=== PATIENT | female | born 1975 | race Hispanic/Latino ===

== ENCOUNTER → 2018-06-14 | Outpatient (CLI) | payer BC ==
--- NOTE | 2018-06-14 11:51 | Diagnostic Imaging Report ---
EXAM: Transabdominal and Transvaginal Pelvic Ultrasound INDICATION: \S\ANEMIA COMPARISON: None TECHNIQUE: Grayscale transverse and sagittal transabdominal and transvaginal images were obtained of the pelvis. Transvaginal imaging was medically necessary to better evaluate the endometrium and the adnexa. CLINICAL HISTORY: 42 year old A0; last menstrual period: 06/02/2018. FINDINGS: Uterus Orientation: Normal Size: 9.1 x 4.4 x 5.9 cm, Normal Mass: None Cervix: Normal Endometrium: Thickness: 0.2 cm, Normal. Appearance: Homogeneous echotexture without focal thickening. Right ovary: Size: 3.5 x 1.9 x 2.1 cm Mass/Cyst: None Left ovary: Size: 3.7 x 2.1 x 2.8 cm Mass/Cyst: None Adnexa: Normal Cul-de-sac: Small to moderate amount of free fluid IMPRESSION: Small to moderate amount of free fluid in the pelvis of indeterminate significance. Differential diagnosis includes ruptured ovarian hemorrhagic cyst, though no ovarian cysts are visualized. If pain persists, consider further evaluation with CT abdomen and pelvis with contrast. Signed by: Dr. Migdalia Harrison M.D. on 06/14/2018 11:47 AM
== END ==
LOC: US 10:29
PROVIDERS: ATTEND Family Medicine
DX: D64.9 Anemia, unspecified (principal)
CPT/HCPCS: 76856

== ENCOUNTER → 2019-09-03 | Day surgery (SDC) | payer BC ==
[~2019-09-03] MED LIST: FAMOTIDINE20 MG PO; FENTANYL CITRATE/PF 100MCG/2 ML INJ ONE; HYDROCHLOROTHIA25 MG PO; IRON PO; LOSARTAN POTAS100 MG PO; METOPROLOL SUCC50 MG PO; MIDAZOLAM HCL 2 MG/2 ML VIAL ONE; PROPOFOL IV EMULSION 10 MG/ML 50 ML VIAL ONE
--- OUTSIDE RECORDS SUMMARY | 2019-09-03 11:28 | XMS REPORT ---
[facility] Address Unknown Phone Unavailable Care Team Providers Care Emergency Medical Tech Name Role Phone YOCASTA TORRES Unavailable Unavailable Payers Payer Name Policy Type Policy Number Effective Date Expiration Date Problems This patient has no known problems. Allergies, Adverse Reactions, Alerts Allergy Name Allergy Type Status Severity Reaction(s) Onset Date Inactive Date Treating Clinician Comments No Known Allergies DA Active U 2019-08-05 00:00:00 No Known Allergies DA Active U 2014-01-29 00:00:00 Medications This patient has no known medications. Results Test Description Test Time Test Comments Text Results Atomic Results Result Comments TROPONIN-I 2019-08-05 20:34:00 TROPONIN-I (test code=TROPI) <0.015 ng/mL 0-0.045 COMMENTS TO SOD FARMER: COLLECT 3 HOURS AFTER PREVIOUS [id number] 17:18:00* Test Item Value Reference Range Comments TROPONIN-I (test code=TROPI) <0.015 ng/mL 0-0.045 COMMENTS TO SOD FARMER: COLLECT 3 HOURS AFTER PREVIOUS SAMPLETROPONIN I [id number] 10:31:00* Test Item Value Reference Range Comments TROPONIN I RAPID (test code=TROPIRAP) 0.00 ng/mL <0.08 Please Note New Reference Range 0.00-0.079 ng/mL - Negative>or=0.08 ng/mL - Positive The use of serial sampling and testing protocol is arecommended practice.An elevated troponin level alone is often not sufficient fordiagnosis of myocardial infarction. Troponin results obtained by different assays may vary.Evaluation of the extent of myocardial damage based onincrease of troponin would be valid only if similarmethodology is used. CHEMISTRY 8 [id number] 10:17:00* Test Item Value Reference Range Comments ISTAT-SODIUM (test code=NAP) mmol/L 135-148 ISTAT-POTASSIUM (test code=KP) mmol/L 3.5-5.5 ISTAT-CHLORIDE (test code=CLP) mmol/L 101-109 ISTAT CARBON DIOXIDE (test code=ISTAT-CO2) mmol/L 21-32 ISTAT CALCIUM IONIZED (test code=ISTAT-PINKY) mg/dL 1.12-1.32 ISTAT-ANION GAP (test code=GAPP) MEQ/L 10-20 ISTAT-GLUCOSE (test code=GLUP) mg/dL 74-106 ISTAT-BUN (test code=BUNP) mg/dL 3-21 BEDSIDE CREATININE (test code=CREATBED) mg/dL 0.7-1.3 GLOMERULAR FILTRATION RATE POC (test code=GFRBED) 133 >60 CHEMISTRY 8 [id number] 10:17:00* Test Item Value Reference Range Comments ISTAT-SODIUM (test code=NAP) 139 mmol/L 135-148 ISTAT-POTASSIUM (test code=KP) 3.5 mmol/L 3.5-5.5 ISTAT-CHLORIDE (test code=CLP) 103 mmol/L 101-109 ISTAT CARBON DIOXIDE (test code=ISTAT-CO2) 34.0 mmol/L 21-32 ISTAT CALCIUM IONIZED (test code=ISTAT-PINKY) 1.16 mg/dL 1.12-1.32 ISTAT-ANION GAP (test code=GAPP) 6.0 MEQ/L 10-20 ISTAT-GLUCOSE (test code=GLUP) 131 mg/dL 74-106 ISTAT-BUN (test code=BUNP) 9 mg/dL 3-21 BEDSIDE CREATININE (test code=CREATBED) 0.5 mg/dL 0.7-1.3 GLOMERULAR FILTRATION RATE POC (test code=GFRBED) 133 >60 BASIC METABOLIC [id number] 10:03:00* Test Item Value Reference Range Comments SODIUM (test code=NA) 140 mmol/L 136-145 POTASSIUM (test code=K) 3.5 mmol/L 3.5-5.1 CHLORIDE (test code=CL) 106.0 mmol/L 98-107 CARBON DIOXIDE (test code=CO2) 27.0 mmol/L 21-32 ANION GAP (test code=GAP) 10.5 10-20 GLUCOSE (test code=GLU) 127 mg/dL 74-106 BLOOD UREA NITROGEN (test code=BUN) 10 mg/dL 7-18 GLOMERULAR FILTRATION RATE (test code=GFR) > 60 mL/min >=60 Estimated GFR by using Modified MDRD formula.Chronic kidney disease is defined as either kidney damageor GFR <60 mL/min/1.73 m2 for >3 months. CREATININE (test code=CREAT) 0.60 mg/dL 0.55-1.02 Note change in reference range due to change in reagent. BUN/CREATININE RATIO (test code=BUN/CREA) 16.7 10-20 CALCIUM (test code=CA) 8.9 mg/dL 8.5-10.1 HCG SERUM [id number] 10:03:00* Test Item Value Reference Range Comments HCG SERUM QUAL (test code=HCGQL) NEGATIVE NEGATIVE This HCGQL test is NOT applicable for MALE patients.Check with nurse about probable order error.If Tumor Marker Test needed, nurse should order test "HCGTU"(Test #550.25508) [id number] 10:03:00* Test Item Value Reference Range Comments TROPONIN-I (test code=TROPI) <0.015 ng/mL 0-0.045 BASIC METABOLIC [id number] 10:00:00* Test Item Value Reference Range Comments SODIUM (test code=NA) 140 mmol/L 136-145 POTASSIUM (test code=K) 3.5 mmol/L 3.5-5.1 CHLORIDE (test code=CL) 106.0 mmol/L 98-107 CARBON DIOXIDE (test code=CO2) mmol/L 21-32 ANION GAP (test code=GAP) 10-20 GLUCOSE (test code=GLU) mg/dL 74-106 BLOOD UREA NITROGEN (test code=BUN) mg/dL 7-18 GLOMERULAR FILTRATION RATE (test code=GFR) mL/min >=60 CREATININE (test code=CREAT) mg/dL 0.55-1.02 BUN/CREATININE RATIO (test code=BUN/CREA) 10-20 CALCIUM (test code=CA) mg/dL 8.5-10.1 HCG SERUM [id number] 10:00:00* Test Item Value Reference Range Comments HCG SERUM QUAL (test code=HCGQL) NEGATIVE NEGATIVE This HCGQL test is NOT applicable for MALE patients.Check with nurse about probable order error.If Tumor Marker Test needed, nurse should order test "HCGTU"(Test #550.81397) [id number] 10:00:00* Test Item Value Reference Range Comments TROPONIN-I (test code=TROPI) ng/mL 0-0.045 - CT HEAD/BRAIN W/O [id number] 09:56:00 Name: ELVIRA ALVARENGA [facility] : 1975 Age/S: 44 / F [address] [facility] Unit #: [id number] Loc: [place] [address] Phys: Artemio Saenz DO Acct: [id number] Dis Date: Status: REG ER PHONE #: [phone] Exam Date: 08/05/2019 0943 FAX #: [phone] Reason: headache/left arm numbness - resoved EXAMS: CPT CODE: [id number] CT HEAD/BRAIN W/O CONT 40039 HISTORY: headache/left arm numbness - resoved TECHNIQUE: Noncontrast 2.[address] of the head. Examination acquired within 24 hours of arrival. Automated exposure control for dose reduction. COMPARISON: Noncontrast CT brain March 05, 2012 FINDINGS: No lacerations or contusions of the scalp or facial soft tissues. Calvarium and skull base are intact. No acute hemorrhage. No intracranial mass, mass effect, or midline shift. No effacement of the sulci or abdalla-white matter interface. No cortical atrophy. No signs of white matter small-vessel disease. No hydrocephalus.. No extra-axial fluid collection. Visualized paranasal sinuses are clear. Mastoid air cells and middle ear cavities are clear. Orbital contents are unremarkable. IMPRESSION: Negative CT head. Locat ion: [facility] at 09 56 Reported and signed by: Amari Abel MD CC: Harsha Krishna MD; Artemio Saenz DO Technologist:Edison Parra RT(R),(MR),(CT) CTDI: DLP: Trnscb Date/Time: 08/05/2019 (0956) [email or web address] Orig Print D/T: S: 08/05/2019 (8408) PAGE 1 Signed Report BASIC METABOLIC [id number] 09:55:00* Test Item Value Reference Range Comments SODIUM (test code=NA) mmol/L 136-145 POTASSIUM (test code=K) mmol/L 3.5-5.1 CHLORIDE (test code=CL) mmol/L 98-107 CARBON DIOXIDE (test code=CO2) mmol/L 21-32 ANION GAP (test code=GAP) 10-20 GLUCOSE (test code=GLU) mg/dL 74-106 BLOOD UREA NITROGEN (test code=BUN) mg/dL 7-18 GLOMERULAR FILTRATION RATE (test code=GFR) mL/min >=60 CREATININE (test code=CREAT) mg/dL 0.55-1.02 BUN/CREATININE RATIO (test code=BUN/CREA) 10-20 CALCIUM (test code=CA) mg/dL 8.5-10.1 HCG SERUM [id number] 09:55:00* Test Item Value Reference Range Comments HCG SERUM QUAL (test code=HCGQL) NEGATIVE NEGATIVE This HCGQL test is NOT applicable for MALE patients.Check with nurse about probable order error.If Tumor Marker Test needed, nurse should order test "HCGTU"(Test #550.77754) [id number] 09:55:00* Test Item Value Reference Range Comments TROPONIN-I (test code=TROPI) ng/mL 0-0.045 CBC W/O [id number] 09:45:00* Test Item Value Reference Range Comments WHITE BLOOD CELL (test code=WBC) 8.5 K/mm3 4.5-12.5 RED BLOOD CELL (test code=RBC) 4.80 mill/mm3 3.7-5.2 HEMOGLOBIN (test code=HGB) 11.9 gram/dL 11.5-15.5 HEMATOCRIT (test code=HCT) 39.2 % 36.0-46.0 MEAN CELL VOLUME (test code=MCV) 81.7 fL 80-98 MEAN CELL HGB (test code=MCH) 24.8 picogram 27.0-33.0 MEAN CELL HGB CONCETRATION (test code=MCHC) 30.4 gram/dL 33.0-36.0 RED CELL DISTRIBUTION WIDTH (test code=RDW) 16.3 % 11.6-16.2 PLATELET COUNT (test code=PLT) 446 K/mm3 150-450 MEAN PLATELET VOLUME (test code=MPV) 10.1 fL 6.7-11.0 CBC W/O [id number] 09:44:00* Test Item Value Reference Range Comments WHITE BLOOD CELL (test code=WBC) K/mm3 4.5-12.5 RED BLOOD CELL (test code=RBC) mill/mm3 3.7-5.2 HEMOGLOBIN (test code=HGB) 11.9 gram/dL 11.5-15.5 HEMATOCRIT (test code=HCT) 39.2 % 36.0-46.0 MEAN CELL VOLUME (test code=MCV) fL 80-98 MEAN CELL HGB (test code=MCH) picogram 27.0-33.0 MEAN CELL HGB CONCETRATION (test code=MCHC) gram/dL 33.0-36.0 RED CELL DISTRIBUTION WIDTH (test code=RDW) % 11.6-16.2 PLATELET COUNT (test code=PLT) K/mm3 150-450 MEAN PLATELET VOLUME (test code=MPV) fL 6.7-11.0 - XR CHEST 1 [id number] 09:43:00 FAX: Harsha Pleitez [phone] [place]: St: REG FAX: Artemio Saenz DO Name: ELVIRA ALVARENGA [facility] : 1975 Age/S: 44/F [address] Unit #: [id number] Loc: [place] [address] Phys: Artemio Saenz DO Acct: [id number] Dis Date: Status: REG ER PHONE #: [phone] Exam Date: 08/05/2019928 FAX #: [phone] Reason: CHEST PAIN EXAMS: CPT CODE: [id number] XR CHEST 1 V 35455 REASON FOR EXAM: CHEST PAIN Exam Order Date: 08/05/2019 9:21 AM Ordering M.D.: Artemio Saenz DO PROCEDURE: - XR CHEST 1 V COMPARISON: None FINDINGS: The lungs are clear. There is no pleural effusion or pneumothorax. Pulmonary vascularity is within normal limits. Cardiomediastinal silhouette is normal in size for technique. The mediastinal contours are within normal limits. Musculoskeletal structures are within normal limits. The visualized upper abdomen is within normal limits. IMPRESSION: No acute cardiopulmonary process. Location: [facility] at 0943 Reported and signed by: Amari Abel MD CC: Harsha Suarez MD; Artemio Saenz DO Te chnologist: Hamida Stephens RT(R); STUDENT TECHNOLOGIST Trnscrd Date/ Time/By: 08/05/2019 (0943) : By: [id number] Orig Print D/T: S: 08/05/20 19 (4318) PAGE 1 Signed Report US PELVIS COMPLETE NON [id number] 11:44:00 [place] [address] Patient Name: ELVIRA ALVARENGA MR #: [id number] : 1975 Age/Sex: 42/F Req #: [id number] Adm Physician: Ordered by: MELISSA KIMBALL, YOCASTA Monge MD Report #: [id number] Location: R oom/Bed: Procedure: [id number] US/US PELVIS COMPLETE N ON OB Exam Date: Exam Time: REPORT STATUS: S igned EXAM: Transabdominal and Transvaginal Pelvic Ultrasound INDICATION: COMPARISON: None TECHNIQUE: Grayscale transverse and sagittal tra nsabdominal and transvaginal images were obtained of the pelvis. Transvaginal imaging was medically necessary to better evaluate the endometrium and the adn exa. CLINICAL HISTORY: 42 year old A0; last menstrual period: 06/02. FINDINGS: Uterus Orientation: Normal Size: 9.1 x 4.4 x 5.9 cm, Normal Mass: None Cervix: Normal Endometrium: Thickness: 0 .2 cm, Normal. Appearance: Homogeneous echotexture without focal thickening. Right ovary: Size: 3.5 x 1.9 x 2.1 cm Mass/Cyst: None Left ovar y: Size: 3.7 x 2.1 x 2.8 cm Mass/Cyst: None Adnexa: Normal Cul-de- sac: Small to moderate amount of free fluid IMPRESSION: Small to moderat e amount of free fluid in the pelvis of indeterminate significance. Differenti al diagnosis includes ruptured ovarian hemorrhagic cyst, though no ovarian cys ts are visualized. If pain persists, consider further evaluation with CT ab domen and pelvis with contrast. Signed by: Diya Saldana on 06/14/2018 11:47 AM Dictated By: NOHEMI PERSAUD MD Electr onically Signed By: NOHEMI PERSAUD MD on 06/14/18 1147 Transcribed By: PREM on 06/14/18 1147 COPY TO: YOCASTA TORRES
[2019-09-03 12:20] VITALS: BP 133/181
== END | disposition home or self-care (01) ==
LOC: OR 11:27
PROVIDERS: ATTEND Internal Medicine Gastroenterology
DX: K29.70 Gastritis, unspecified, without bleeding (principal); K31.7 Polyp of stomach and duodenum; I10 Essential (primary) hypertension; D64.9 Anemia, unspecified; Z68.41 Body mass index [BMI] 40.0-44.9, adult
CPT/HCPCS: 43239; 81025; J2250; J2704; J3010

== ENCOUNTER → 2020-06-29 | Outpatient (CLI) | payer BC ==
[~2020-06-29] MED LIST changes: -FENTANYL CITRATE/PF 100MCG/2 ML INJ ONE; -MIDAZOLAM HCL 2 MG/2 ML VIAL ONE; -PROPOFOL IV EMULSION 10 MG/ML 50 ML VIAL ONE
== END ==
LOC: MAMMO 12:59
PROVIDERS: ATTEND Obstetrics & Gynecology
DX: N63.13 Unspecified lump in the right breast, lower outer quadrant (principal)
CPT/HCPCS: 77066

== ENCOUNTER → 2021-08-16 | Outpatient (CLI) | payer BC | LOC: MAMMO 09:41 | PROVIDERS: ATTEND Obstetrics & Gynecology | DX: Z12.31 Encounter for screening mammogram for malignant neoplasm of breast (principal) | CPT/HCPCS: 77067 ==

== ENCOUNTER → 2024-11-08 | Day surgery (SDC) | payer BC ==
[~2024-11-08] MED LIST changes: +AMLODIPINE BESYL5 MG PO; +FENTANYL CITRATE/PF 100MCG/2 ML INJ ONE; +GLIPIZIDE5 MG PO; +MIDAZOLAM HCL 2 MG/2 ML VIAL ONE; +PROPOFOL IV EMULSION 10 MG/ML 20 ML VIAL ONE; +[UNRECOGNIZED DRUG - OTHER]
[2024-11-08] MEDS: LACTATED RINGER'S 1,000 ML ONE (15:05)
[2024-11-08 16:57] VITALS: BP 132/81; PULSE 84; RESP 16; O2SAT 97
== END | disposition home or self-care (01) ==
LOC: OR 14:38
PROVIDERS: ATTEND Internal Medicine Gastroenterology
DX: Z12.11 Encounter for screening for malignant neoplasm of colon (principal); D12.2 Benign neoplasm of ascending colon; D12.3 Benign neoplasm of transverse colon; D12.4 Benign neoplasm of descending colon; K57.30 Diverticulosis of large intestine without perforation or abscess without bleeding; K29.70 Gastritis, unspecified, without bleeding; K31.89 Other diseases of stomach and duodenum; K44.9 Diaphragmatic hernia without obstruction or gangrene; K21.9 Gastro-esophageal reflux disease without esophagitis; R19.8 Other specified symptoms and signs involving the digestive system and abdomen; K64.8 Other hemorrhoids; D50.9 Iron deficiency anemia, unspecified; R89.4 Abnormal immunological findings in specimens from other organs, systems and tissues; R01.1 Cardiac murmur, unspecified; I10 Essential (primary) hypertension; E78.5 Hyperlipidemia, unspecified; F41.9 Anxiety disorder, unspecified; Z01.810 Encounter for preprocedural cardiovascular examination; Z79.84 Long term (current) use of oral hypoglycemic drugs; Z79.899 Other long term (current) drug therapy; Z68.41 Body mass index [BMI] 40.0-44.9, adult; Z85.43 Personal history of malignant neoplasm of ovary
CPT/HCPCS: 43239; 45380; 45384; 45385; 93005; J2250; J2704; J3010; J7121